=== PATIENT | female | born 1940 | race Caucasian/White ===

== ENCOUNTER 2024-08-29 09:11 | Inpatient (IN) | payer OTHER ==
[2024-08-29 09:52] VITALS: BMI 25.8
[2024-08-29] MEDS ORDERED: ACETAMINOPHEN INJECTION 100 ML ONE (09:59)
[2024-08-29] MEDS: SODIUM CHLORIDE 1,000 ML IV STA ×5 (10:03→11:41)
[2024-08-29] MEDS: ACETAMINOPHEN 1000 MG/100 ML BAG IVPB ONE (10:04)
[2024-08-29 10:17] LABS: HEMATOCRIT 50.4 % (32.4-45.2); HEMOGLOBIN 15.7 GM/dL (10.7-15.3); MCH 30.1 pg (25.7-33.7); MCHC 31.2 g/dl (32.0-36.0); MEAN CELL VOLUME 96.5 fl (80-96); MEAN PLT VOLUME 12.8 fl (7.5-11.1); PLATELET COUNT 204 10^3/uL (134-434); RBC 5.22 M/mm3 (3.60-5.2); RDW 16.8 % (11.6-15.6); WHITE BLOOD COUNT 25.2 K/mm3 (4.0-10.0)
[2024-08-29 10:25] LABS: INR 1.61 (0.83-1.09); PROTHROMBIN TIME (PATIENT) 17.7 SEC (9.7-13.0)
[2024-08-29 10:28] LABS: ACTIVATED PTT 28.9 SECONDS (25.2-36.5)
[2024-08-29 10:31] LABS: CHLORIDE 120 mmol/L (98-107); SODIUM 151 mmol/L (136-145)
[2024-08-29 10:36] LABS: ALBUMIN 2.4 g/dl (3.4-5.0)
[2024-08-29 10:37] LABS: ANION GAP 10 mmol/L (4-13); BLOOD UREA NITROGEN 83.8 mg/dL (7-18); CO2 21 mmol/L (21-32); GLUCOSE,RANDOM 157 mg/dL (74-106)
[2024-08-29 10:39] LABS: EPI CELLS >36 /uL (0-25.1); HYALINE CASTS 6 /uL (0-3.1); PH,URINE 5.5 (5.0-8.0); URINE APPEARANCE TURBID; URINE BACTERIA >9,000 /uL (0-1359); URINE BILIRUBIN NEGATIVE (NEGATIVE); URINE COLOR YELLOW; URINE GLUCOSE (UA) NEGATIVE (NEGATIVE); URINE KETONE 1+ (NEGATIVE); URINE LEUK ESTERASE 3+ (NEGATIVE); URINE NITRITE NEGATIVE (NEGATIVE); URINE PROTEIN 1+ (NEGATIVE); URINE UROBILINOGEN 0.2 mg/dL (0.2-1.0); URINE WBC 22133 /uL (0-25.8)
[2024-08-29 10:40] LABS: CREATININE 3.2 mg/dL (0.55-1.3); SGOT/AST 61 U/L (15-37); SGPT/ALT 15 U/L (13-61)
[2024-08-29 10:41] LABS: TOT PROT 6.7 g/dl (6.4-8.2)
[2024-08-29 10:43] LABS: ALK PHOS 57 U/L (45-117)
[2024-08-29 10:51] LABS: BILIRUBIN,TOTAL 0.9 mg/dL (0.2-1)
[2024-08-29 11:02] LABS: URINE RBC 503 /uL (0-23.9); YEAST NONE SEEN (NEGATIVE)
[2024-08-29 11:15] VITALS: RESP 36
[2024-08-29 11:17] LABS: LACTIC ACID 3.9 mmol/L (0.4-2.0)
[2024-08-29 11:41] LABS: BLOOD UREA NITROGEN 84.2 mg/dL (7-18)
[2024-08-29 11:42] LABS: ALBUMIN 1.8 g/dl (3.4-5.0); CALCIUM 7.1 mg/dL (8.5-10.1)
[2024-08-29 11:44] LABS: CREATININE 2.8 mg/dL (0.55-1.3)
[2024-08-29 11:45] LABS: BILIRUBIN,TOTAL 0.4 mg/dL (0.2-1)
[2024-08-29] MEDS ORDERED: PIPERACILLIN/TAZOB 4.5 GM 4.5 GM/100 ML BAG IVPB ONE (11:51)
[2024-08-29] MEDS: PIPERACILLIN/TAZOB 4.5 GM 4.5 GM in DEXTROSE 5%-WATER 100 ML IVPB ONE (11:53)
[2024-08-29 11:55] LABS: TOT PROT 4.4 g/dl (6.4-8.2)
[2024-08-29] MEDS ORDERED: VANCOMYCIN 1 GM PREMIX (F) 1 GM/200 ML BAG ONE (11:59)
[2024-08-29] MEDS: VANCOMYCIN 1 GM PREMIX (F) 1 GM/200 ML BAG IVPB ONE (12:19)
[2024-08-29 12:41] LABS: ALLENS TEST POSITIVE; ARTERIAL BLD GAS O2 SATURATION 96.1 % (95-98); ARTERIAL BLOOD GAS BASE EXCESS -12.6 mmol/L (-2-2); ARTERIAL BLOOD GAS PO2 100.8 mmHg (80-100)
[2024-08-29 12:43] LABS: ARTERIAL BLOOD GAS pH 7.181 (7.350-7.450)
[2024-08-29 12:45] LABS: ANISOCYTOSIS 0; MACROCYTOSIS 0
[2024-08-29] MEDS ORDERED: MORPHINE SULFATE/0.9% NACL/PF 100 MG/100 ML BAG ONE (14:28)
[2024-08-29] MEDS: MORPHINE SULFATE/0.9% NACL/PF 100 MG/100 ML BAG IVPB SCH (14:29)
[2024-08-29 14:39] VITALS: BP 100/57; PULSE 115; TEMP 100
== END 2024-08-29 14:47 | disposition expired | DRG 871 ==
LOC: JER 09:11 → JERBED 11:38
PROVIDERS: ADMIT Internal Medicine; ATTEND Internal Medicine
DX: A41.89 Other specified sepsis (principal); E43 Unspecified severe protein-calorie malnutrition; I21.4 Non-ST elevation (NSTEMI) myocardial infarction; R65.21 Severe sepsis with septic shock; J96.01 Acute respiratory failure with hypoxia; N39.0 Urinary tract infection, site not specified; N17.9 Acute kidney failure, unspecified; I95.9 Hypotension, unspecified; I10 Essential (primary) hypertension; I48.91 Unspecified atrial fibrillation; B96.20 Unspecified Escherichia coli [E. coli] as the cause of diseases classified elsewhere; Z66 Do not resuscitate; Z68.25 Body mass index [BMI] 25.0-25.9, adult
CPT/HCPCS: 0241U-QW; 36415; 36600; 71045-TC-FY; 80053; 81003; 82803; 83605; 84484; 85025; 85610; 85730; 86850; 86900; 86901; 87040; 87086; 87186; 99285-25; J0131